=== PATIENT | male | born 1945 | race Caucasian/White ===

== ENCOUNTER → 2017-11-30 | Outpatient (CLI) | payer MEDICARE, OTHER | LOC: GMAL 15:31 | PROVIDERS: ATTEND Family Medicine | DX: Z12.5 Encounter for screening for malignant neoplasm of prostate (principal) ==

== ENCOUNTER → 2019-07-06 | Outpatient (CLI) | payer MEDICARE, OTHER ==
--- NOTE | 2019-07-07 17:20 | MRI ---
EXAM DESCRIPTION: MRA Head and/or Neck (accession [id number]), Brain w/o Contrast (accession [id number]): MRI. CLINICAL HISTORY: MEMORY LOSS CVA COMPARISON: None. TECHNIQUE: 3-D [id number] acquisitions through the brain without gadolinium IV contrast. Multiplanar, high-field MRI unit, multiple diffusion sequences, multiple conventional sequences without contrast. FINDINGS: Symmetric caliber of the bilateral ICAs in the transverse portion, carotid siphon, and intracranial segments. Bilateral posterior communicating arteries from the ICAs to the posterior circulation. Bilateral intracranial ICA bifurcation are negative. Anterior communicating artery not well seen. Right vertebral artery is dominant compared to the left. Left PICA vessel and left distal vertebral artery are similar caliber. Basilar bifurcation to merge with the bilateral posterior communicating arteries to form the posterior cerebral arteries. More contribution bilaterally from the posterior communicating arteries. No mass effect. No aneurysm or stenoses. No vasculitis. Minimal hyperintense FLAIR and T2-weighted signal in the periventricular white matter abutting the frontal horns of the lateral ventricles in the occipital horns. No hemorrhage, no cerebral edema, no diffusion restriction.. At least 2 foci of similar FLAIR and T2 signal in the subcortical white matter of the left frontal lobe. Normal signal in the bilateral basal ganglia. Normal signal in the brainstem and cerebellar hemispheres. No hemorrhage, no parenchymal edema, no diffusion restriction.. Concordance of the diffusion and non-diffusion sequences with no diffusion restriction. Cortical sulci, ventricles, and other CSF spaces, and the subdural spaces are normally configured for patients age.. No effacement or displacement. No midline shift. No extra-axial hemorrhage. IACs are symmetric bilaterally. No fluid in the bilateral mastoid air cells. No mass effect in the bilateral cerebellopontine angles. Pituitary gland occupies less than half of the sella. Base of the cerebellar tonsils is at the level of the foramen magnum. Minimal mucoperiosteal thickening in the. The bony calvarium is intact. IMPRESSION: 1. Normal noncontrast MRA of the brain with no mass effect, no aneurysm or stenosis, and no vasculitis. 2. White matter changes are most likely age-related or early cerebral microvascular disease. No intra-axial or extra-axial hemorrhage, no fluid collection. No diffusion restriction, no cerebral edema, no mass effect. Electronically signed by: Koko Walls MD 07/07/2019 5:18 PM CDT
--- NOTE | 2019-07-07 17:20 | MRI ---
EXAM DESCRIPTION: MRA Head and/or Neck (accession [id number]), Brain w/o Contrast (accession [id number]): MRI. CLINICAL HISTORY: MEMORY LOSS CVA COMPARISON: None. TECHNIQUE: 3-D [id number] acquisitions through the brain without gadolinium IV contrast. Multiplanar, high-field MRI unit, multiple diffusion sequences, multiple conventional sequences without contrast. FINDINGS: Symmetric caliber of the bilateral ICAs in the transverse portion, carotid siphon, and intracranial segments. Bilateral posterior communicating arteries from the ICAs to the posterior circulation. Bilateral intracranial ICA bifurcation are negative. Anterior communicating artery not well seen. Right vertebral artery is dominant compared to the left. Left PICA vessel and left distal vertebral artery are similar caliber. Basilar bifurcation to merge with the bilateral posterior communicating arteries to form the posterior cerebral arteries. More contribution bilaterally from the posterior communicating arteries. No mass effect. No aneurysm or stenoses. No vasculitis. Minimal hyperintense FLAIR and T2-weighted signal in the periventricular white matter abutting the frontal horns of the lateral ventricles in the occipital horns. No hemorrhage, no cerebral edema, no diffusion restriction.. At least 2 foci of similar FLAIR and T2 signal in the subcortical white matter of the left frontal lobe. Normal signal in the bilateral basal ganglia. Normal signal in the brainstem and cerebellar hemispheres. No hemorrhage, no parenchymal edema, no diffusion restriction.. Concordance of the diffusion and non-diffusion sequences with no diffusion restriction. Cortical sulci, ventricles, and other CSF spaces, and the subdural spaces are normally configured for patients age.. No effacement or displacement. No midline shift. No extra-axial hemorrhage. IACs are symmetric bilaterally. No fluid in the bilateral mastoid air cells. No mass effect in the bilateral cerebellopontine angles. Pituitary gland occupies less than half of the sella. Base of the cerebellar tonsils is at the level of the foramen magnum. Minimal mucoperiosteal thickening in the. The bony calvarium is intact. IMPRESSION: 1. Normal noncontrast MRA of the brain with no mass effect, no aneurysm or stenosis, and no vasculitis. 2. White matter changes are most likely age-related or early cerebral microvascular disease. No intra-axial or extra-axial hemorrhage, no fluid collection. No diffusion restriction, no cerebral edema, no mass effect. Electronically signed by: Koko Walls MD 07/07/2019 5:18 PM CDT
== END ==
LOC: MRI 08:00
PROVIDERS: ATTEND Family Medicine
DX: R41.81 Age-related cognitive decline (principal); I63.9 Cerebral infarction, unspecified; R90.82 White matter disease, unspecified; R53.82 Chronic fatigue, unspecified; E53.8 Deficiency of other specified B group vitamins